=== PATIENT | female | born 1995 | race Caucasian/White ===

== ENCOUNTER 2018-05-31 15:11 | Outpatient (REF) | payer MEDICAID, SELFPAY ==
--- NOTE | 2018-05-31 11:40 | PAPFT_PTH ---
PATIENT: Varsha Espino LOC: [facility] U#:[id number] AGE/SX: 22/F ROOM: RE05/31/[address]: Mariposa Carroll NP : 1995 BED: DIS: 05/31/2018 SPEC #: [id number] RECD: 05/31/18 17:46 STATUS: ALF HERRERA #: [id number] LEONARD: 05/31/18 11:[address]: Mariposa Carroll NP DEPT: [facility] Cytology RECD BY: Ariella Lara ENTERED: 05/31/18 17:46 SP TYPE: PAPFT OTHR DR: Nina Moran Tissues: 1 - CX/ENDOCX FOR PAP SMEARS Procedures: PAP THIN PREP/UVM Screening Comments: [id number] (CHLAMYDIA/GC)
[2018-06-01 14:04] LABS: Chlamydia Result Negative; GC Result Negative; Specimen Description SEE COMMENTS
== END 2018-05-31 15:31 ==
LOC: LBN 15:11
PROVIDERS: PCP Nurse Practitioner Family; Visit Provider Nurse Practitioner Women's Health
DX: Z12.4 Encounter for screening for malignant neoplasm of cervix (principal); Z11.3 Encounter for screening for infections with a predominantly sexual mode of transmission
CPT/HCPCS: 87491; 87591; 88142

== ENCOUNTER 2020-01-16 14:47 | Outpatient (REF) | payer SELFPAY ==
[2020-01-17 15:14] LABS: Chlamydia Result Positive (Negative); GC Result Negative (Negative)
== END 2020-01-16 15:07 ==
LOC: LBN 14:47
PROVIDERS: PCP Nurse Practitioner Family; Visit Provider Nurse Practitioner Family
DX: Z11.3 Encounter for screening for infections with a predominantly sexual mode of transmission (principal)
CPT/HCPCS: 87491; 87591

== ENCOUNTER 2020-05-04 03:08 | Outpatient (CLI) | payer MEDICAID, SELFPAY ==
[2020-05-04 15:15] LABS: Abs Immature Grans 0.02 10^3/uL (0.0-0.06); Absolute Basophil Count 0.04 10^3/uL (0.0-0.2); Absolute Eosinophil Count 0.03 10^3/uL (0.0-0.7); Absolute Lymphocyte Count 1.36 10^3/uL (1.2-3.4); Absolute Monocyte Count 0.55 10^3/uL (0.1-0.8); Absolute Neutrophil Count 6.32 10^3/uL (1.2-6.7); Basophils % 0.5; Eosinophils % 0.4; HCT 39.6 % (36.0-46.0); HGB 13.6 g/dL (11.2-15.7); Immature Grans % 0.2; Lymphocytes % 16.3; MCH 31.9 pg (27.0-33.0); MCHC 34.3 % (32.0-36.0); MCV 92.7 fL (80-95); MPV 9.5 fL (8.0-11.0); Monocytes % 6.6; Nucleated RBC 0 %; Platelet Count 281 10^3/uL (130-400); RBC 4.27 10^6/uL (3.93-5.22); RDW 12.4 % (11.7-14.6); RDW-SD 42.5 fL; WBC 8.32 10^3/uL (4.4-10.8)
[2020-05-04 15:54] LABS: Glucose,1 Hr (Glucola) 124 mg/dL (80-140)
[2020-05-04 17:01] LABS: *AMPHETAMINES SCREEN URINE Negative (Negative); *BARBITURATES SCREEN URINE Negative (Negative); *BENZODIAZEPINES SCREEN URINE Negative (Negative); Cannabinoids THC Negative (Negative); Cocaine Screen,Urine Negative (Negative); METHADONE URINE SCREEN Negative (Negative); OPIATES URINE SCREEN Negative (Negative)
[2020-05-04 17:10] LABS: TSH (W/Ref FT4) 1.19 uIU/mL (0.36-3.74)
[2020-05-04 17:22] LABS: Tricyclic Antidepressants Negative (Negative)
[2020-05-05 10:11] LABS: Hepatitis C Ab w Rflx HCV PCR Negative (Negative)
[2020-05-05 10:23] LABS: Varicella IgG Antibody Negative (See Note)
[2020-05-05 10:26] LABS: Rubella IgG Ab (UVM) Positive (See Note)
[2020-05-05 11:40] LABS: Hepatitis B Surface Ag Negative (Negative)
[2020-05-05 12:25] LABS: HIV-1/2 Ag & Ab Screen Negative (Negative)
[2020-05-05 15:52] LABS: Syphilis Total Ab w/Reflex Nonreactive (Nonreactive)
[2020-05-06 14:45] LABS: Chlamydia Result Negative (Negative); GC Result Negative (Negative)
[2020-05-08 17:12] LABS: Buprenorphine Negative; Norbuprenorphine Negative
== END 2020-05-04 03:28 ==
PROVIDERS: PCP Nurse Practitioner Family; Visit Provider Advanced Practice Midwife
DX: Z34.91 Encounter for supervision of normal pregnancy, unspecified, first trimester (principal); Z11.3 Encounter for screening for infections with a predominantly sexual mode of transmission; Z11.4 Encounter for screening for human immunodeficiency virus [HIV]; Z11.59 Encounter for screening for other viral diseases; Z01.84 Encounter for antibody response examination
CPT/HCPCS: 36415; 80307; 82950; 86787; 86803; 86850; 86900; 86901; 87340; 87389; 87491; 87591; 84443; 85025; 86762; 86780; 87086

== ENCOUNTER 2020-06-04 02:49 | Outpatient (CLI) | payer MEDICAID, SELFPAY ==
[2020-06-04 09:33] LABS: Kit/Specimen SENT
[2020-06-15 02:52] LABS: Result Summary NEGATIVE; Specimen WB Whole Blood
== END 2020-06-04 02:50 | disposition home or self-care (01) ==
LOC: LBO 02:49
PROVIDERS: Advanced Practice Midwife; PCP Nurse Practitioner Family; Visit Provider Advanced Practice Midwife
DX: Z34.91 Encounter for supervision of normal pregnancy, unspecified, first trimester (principal); Z36.89 Encounter for other specified antenatal screening
CPT/HCPCS: 36415; 81220

== ENCOUNTER 2020-06-29 01:08 | Outpatient (CLI) | payer MEDICAID, SELFPAY ==
--- NOTE | 2020-06-29 07:45 | DI.US_ITS ---
EXAM: US OB 2-3 TRIMESTER CLINICAL HISTORY: 18 wk anatomy survey,Z34.90. TECHNIQUE: Transabdominal obstetrical ultrasound was performed. COMPARISON: US US OB 1ST TRIMESTER from 04/22/2020 FINDINGS: There is a single viable intrauterine gestation with cardiac activity identified-145 bpm. Amniotic fluid: There is a normal amount of amniotic fluid. Placental location: The placenta is anterior-left, grade 1,with no evidence of placenta previa. ANATOMY: A 3 vessel umbilical cord is seen. A four-chamber cardiac view was obtained. Right and left ventricular outflow tracts were imaged. There are no obvious abnormalities of the spinal column evident. There is no obvious abnormal ity of the anterior abdominal wall. stomach and urinary bladder are identified and there is no evidence of hydronephrosis. No abnormalities of the upper lip region are identified. No evidence of choroid plexus cysts i n the brain. Dating parameters place this at approximately 18 weeks and 6 days gestational age. BPD measures 19 weeks HC measures 18 weeks and 6 days AC measures 18 weeks and 5 days FL measures 18 weeks and 5 days Estimated weight is 256 gm-0 pounds 9 ounces Fetus is at the 82nd percentile on the Hadlock scale. IMPRESSION:: Single viable intrauterine gestation which is approximately 18 weeks and 6 days gestati onal age, implying an STEPHANIE of November 24, 2020. There are no obvious anomalies evident on today's study. The placenta is anterior-left with no evidence of placenta previa. There is a normal amount of amniotic fluid. DATA REPOSITORY:
== END 2020-06-29 01:28 ==
PROVIDERS: PCP Nurse Practitioner Family; Visit Provider Advanced Practice Midwife
DX: Z34.92 Encounter for supervision of normal pregnancy, unspecified, second trimester (principal)
CPT/HCPCS: 76805

== ENCOUNTER 2020-06-29 03:10 | Outpatient (CLI) | payer MEDICAID, SELFPAY ==
[2020-07-01 11:52] LABS: Calculated age at EDD 27 years; Cigarette smoking status non-Smoker; GA used in risk estimate Dates estimate; IVF Pregnancy No; Initial or repeat testing Initial testing; Insulin dependent diabetes No; Maternal Weight 225 lbs; Number of Fetuses 1; Physician Phone Number 802-748-7300; Prev Pregnancy w/NTD No; RECOMMENDED FOLLOW UP None.; Results Summary Normal risk
== END 2020-06-29 03:11 | disposition home or self-care (01) ==
LOC: LBO 03:10
PROVIDERS: Advanced Practice Midwife; PCP Nurse Practitioner Family; Visit Provider Advanced Practice Midwife
DX: Z34.92 Encounter for supervision of normal pregnancy, unspecified, second trimester (principal); Z3A.18 18 weeks gestation of pregnancy; Z36.89 Encounter for other specified antenatal screening
CPT/HCPCS: 36415; 76805; 82105

== ENCOUNTER 2020-09-07 02:14 | Outpatient (CLI) | payer MEDICAID, SELFPAY ==
[2020-09-07 09:58] LABS: HCT 35.9 % (36.0-46.0); MCH 32.2 pg (27.0-33.0); MCHC 33.4 % (32.0-36.0); MCV 96.2 fL (80-95); MPV 9.9 fL (8.0-11.0); Platelet Count 256 10^3/uL (130-400); RBC 3.73 10^6/uL (3.93-5.22); RDW 12.5 % (11.7-14.6); RDW-SD 44.1 fL; WBC 6.69 10^3/uL (4.4-10.8)
[2020-09-07 10:20] LABS: Glucose,1 Hr (Glucola) 109 mg/dL (80-140)
== END 2020-09-07 02:15 | disposition home or self-care (01) ==
LOC: LBO 02:14
PROVIDERS: PCP Nurse Practitioner Family; Visit Provider Advanced Practice Midwife
DX: Z34.93 Encounter for supervision of normal pregnancy, unspecified, third trimester (principal); Z3A.28 28 weeks gestation of pregnancy
CPT/HCPCS: 36415; 82950; 85027

== ENCOUNTER 2020-11-03 15:58 | Outpatient (REF) | payer MEDICAID, SELFPAY ==
[2020-11-03 14:00] LABS: *AMPHETAMINES SCREEN URINE Negative (Negative); *BARBITURATES SCREEN URINE Negative (Negative); *BENZODIAZEPINES SCREEN URINE Negative (Negative); Cannabinoids THC Negative (Negative); Cocaine Screen,Urine Negative (Negative); METHADONE URINE SCREEN Negative (Negative); OPIATES URINE SCREEN Negative (Negative)
[2020-11-03 14:03] LABS: Tricyclic Antidepressants Negative (Negative)
[2020-11-07 08:21] LABS: Buprenorphine Negative ng/mL (Cutoff: 5.0); Norbuprenorphine Negative ng/mL (Cutoff: 2.5)
== END 2020-11-03 15:59 | disposition home or self-care (01) ==
LOC: LBN 15:58
PROVIDERS: PCP Nurse Practitioner Family; Visit Provider Advanced Practice Midwife
DX: Z34.93 Encounter for supervision of normal pregnancy, unspecified, third trimester (principal); Z36.85 Encounter for antenatal screening for Streptococcus B; Z3A.36 36 weeks gestation of pregnancy
CPT/HCPCS: 80307; 87081

== ENCOUNTER 2020-11-23 10:51 | Inpatient (IN) | payer MEDICAID, SELFPAY ==
[2020-11-23] VITALS (25 sets, daily range): BP systolic 132–191; BP diastolic 78–124; PULSE 75–94; RESP 18; TEMP 36.6–37
--- NOTE | 2020-11-23 11:57 | HPE_ITS ---
Date of service: 11/23/20 Time of Service: 11:57 Assessment and Plan Assessment and plan (1) 39 weeks gestation of : Status: Acute (2) PROM (premature rupture of membranes): Status: Acute Assessment and plan: A: 24 yo G1 @ 39+1 wks SROM 0300, confirmed by SSE, +ferns GBS+, low risk for PPH and SD low dose ASA for risk of Pre-E Varicella Non-Immune (plan vaccination) Latent phase labor P: Admit to BC, CBC, T&S, COVID swab Begin GBS prophylaxis with PCN Await labor onset, plan pitocin induction if needed Pt verbalizes understanding and agreement with plan of care Qualifiers: PROM gestational age: full term PROM onset of labor timing: unspecified duration between rupture of membranes and onset of labor Qualified Code(s): O42.92 - Full-term premature rupture of membranes, unspecified as to length of time between rupture and onset of labor OB-HPI Labor/Delivery History of Present Illness Reason for Visit: R/O SROM @ 0300 Chief Complaint: Suspected Rupture of Membranes , Associated Signs and Symptoms of Suspected ROM: gush of clear fluid x2 at 0300. STEPHANIE Calculator Estimated Delivery Date Method Current WG Current Estimate 11/29/20 LMP (Certain) 39w 1d History of Present Expected Delivery Route/Plan - CNM FOB/boyfriend - Nitish Forte (first child) - They are not together and he will not be at the . GBS positive Varicella Non-Immune, will accept vaccine BB yes to circ- Calvin [place] wishes - hopes to avoid pain medications/epidural if possible. Pt's mother Katie will be support, is vaccinated. Specific Issues/Plan 1. First trimester bleeding 8 week US shows small subchorionic hemorrhage - precautions reviewed. 2. At initial OB, pre- BMI 32, early gkx=817, Glucose at 28 weeks- 109. 3. Varicella Non-Immune, discussed precautions/vaccine @ 14 wks 4. Desires Sevier, CF and AFP single marker testing 4a. Sevier low prob x3 male, CF neg, Single marker AFP 06/29= nml risk for NTD 5. CT+ in January, treated, KELLE negative at 10 wks EGA 6. Low dose ASA 81 mg for nulliparity and BMI of 33 7. Meet with LC after 36 wks but prior to delivery to discuss ____ 8. First covid vaccine done, appt for 2nd on August 31- received 2nd injection. Assessment: History Reviewed & Current Review of Systems All systems reviewed & are unremarkable except as noted in HPI and below Constitutional Constitutional: Reports as per HPI Cardiovascular Cardiovascular: Reports system reviewed and no additional complaints, except as documented Respiratory Respiratory: Reports system reviewed and no additional complaints, except as documented Gastrointestinal Gastrointestinal: Reports system reviewed and no additional complaints, except as documented Genitourinary Genitourinary: Reports system reviewed and no additional complaints, except as documented Musculoskeletal Musculoskeletal: Reports system reviewed and no additional complaints, except as documented Integumentary/Breasts Skin/Breast: Reports system reviewed and no additional complaints, except as documented Neurologic Neurologic: Reports system reviewed and no additional complaints, except as documented Psychiatric Psychiatric: Reports system reviewed and no additional complaints, except as documented [facility] Medical History (Updated 11/23/20 @ 12:04 by Summer Ramires) Chlamydia infection Threatened Surgical History S/P LASIK surgery of both eyes [place] teeth extracted Family History (Updated 05/04/20 @ 13:47 by Daina Vaughn RN) Mother Hypertension Social History Smoking/Tobacco Use Status: Never Smoking risk assessment performed?: Yes Alcohol Intake: current Alcohol Intake frequency: a few times a month Drug use: Never Substance use type: does not use current occupation: insurance company What type of physical activity do you participate in: regular exercise Do you feel safe in your relationship?: No Female Reproductive History Menstrual control method: pills History History 1 Para 0 Hx # Term Pregnancies 0 Multiple births 0 Hx # Pregnancies 0 Ectopic pregnancies 0 AB induced 0 Hx Number of Living Children 0 AB spontaneous 0 Meds Allergies and Home Medications Allergies Allergy/AdvReac Type Severity Reaction Status Date / Time nickel Allergy Skin Rash Verified 11/17/20 15:42 Home Medications Medication Instructions Recorded Confirmed Type Lactobac 51-Bifidobac 1 cap PO DAILY #1 cap 05/31/18 11/17/20 Rx 3-L.lactis-S.thermophilus 4 billion cell capsule prenat.vits,lisa,leq-orus-sdwra 1 tab PO DAILY 04/01/20 11/17/20 History aspirin 81 mg tablet,delayed 81 mg PO DAILY #90 tab 06/01/20 11/17/20 Rx release Exam Physical Exam Vital signs: Pulse BP 85 154/94 H 11/23/20 11:31 11/23/20 11:31 Vital Signs Reviewed: Yes Constitutional Constitutional: no acute distress Detailed Labor and Delivery Exam Dilation: 1 Effacement (%): 70 station: -4 Cervix position: posterior Consistency: medium LOPEZ Score(Cervical Ripeness Score): 4 Amniotic Membrane Status: Ruptured Rupture Method: Spontaneous Amniotic Fluid: Clear Pooling: Positive Nitrazine: Equivocal Ferning: Present Monitor Mode: External Contraction Frequency(min): irregular, q 7-10 Contraction Duration(sec): 60 Contraction Intensity: Mild Fetus A Heart Rate Baseline: 135 Monitor Accelerations: 15 X 15 Monitor Decelerations: None Variability: Moderate (6-25 BPM) Presentation: Cephalic Categories: Category I Est. Weight: 6 lb 9.822 oz Est. Weight: 3000 gms Date of Membrane Rupture: 11/23/20 Time of Membrane Rupture: 03:00 HEENT Exam HEENT Exam: Normal Neck Exam Neck Exam: Normal Chest/Brest/Axilla Exam Chest Exam: Normal Breast Exam Breast Exam: Not Done Respiratory Exam Respiratory Exam: Normal Cardiovascular Exam Cardiovascular Exam: Normal Abdominal Exam Abdominal Exam: Normal (Gravid, soft, nontender) Rectal Exam Rectal Exam: Not Done Exam Exam: Normal Extremities Exam Extremities Exam: Normal Back/Spine/Pelvis Exam Back Exam: Normal Pelvis Adequate: Yes Skin Exam Skin Exam: Normal Neurological Exam Neurological Exam: Normal Psychiatric Exam Psychiatric Exam: Normal Results Results Group Beta Strep: Positive Blood Type: A+ Rubella Status: Immune Varicella Immunity: Nonimmune Risk Assessment Risk for Shoulder Dystocia Historical/Initial OB: POSITIVE FOR: Pre- BMI>30; NEGATIVE FOR: Pelvic Abnormality, Previous Shoulder Dystocia or Previous Macrosomia 40 Weeks: NEGATIVE FOR: EFW> 4500 gms, Maternal Weight Gain >40lb or Post Dates Increased Risk?: No Counselin05/04/20 reviewed appropriate wt gain. al Delivery Plan @ 36wks: spont labor, Risk for Pre-Eclampsia Daily Dose ASA Indicated: Yes Date Initiated/Initials: 05/04/20 , accepts l/d asa starting at 12 weeks. al Yes, if one or more: NEGATIVE FOR: Hx Pre-E/Gest HTN, Chronic HTN, Multiple Gestation, Pre-gestational DM, Renal Disease, Systemic Lupus or APA Syndrome Yes, if 2 or more: POSITIVE FOR: Nulliparity and BMI>30; NEGATIVE FOR: Age>= 35 yrs, >10yr btwn pregnancies, ethinicty, Mother/Sister w/ Pre-E or Previous IUGR Risk for Post- Hemorrhage Initial: NEGATIVE FOR: Multiple Gestation, Previous PPH, Known Clotting Deficiency, Grand Multiparity or Anticoagulation At Risk?: No Risks Reviewed Risks Reviewed Upon Admission: Yes
[2020-11-23 12:34] LABS: HCT 33.6 % (36.0-46.0); MCH 30.4 pg (27.0-33.0); MCHC 32.7 % (32.0-36.0); MCV 92.8 fL (80-95); Platelet Count 265 10^3/uL (130-400); RBC 3.62 10^6/uL (3.93-5.22); RDW 13.6 % (11.7-14.6); RDW-SD 45.3 fL; WBC 10.24 10^3/uL (4.4-10.8)
[2020-11-23] MEDS: Penicillin G POT. 5,000,000 UNITS in Normal Saline 100 ML 200 UNITS IVPB (13:00)
[2020-11-23] MEDS: Normal Saline 500 ML 30 ML IV (13:23)
--- NOTE | 2020-11-23 14:02 | W.OBNST ---
Date of service: 11/23/20 Time of Service: 14:02 NST Evaluation Reason for NST Reasons for Nonstress Test: OTHER, SEE COMMENT Reason for NST Other: SROM Gestational Age Gestational Age in Weeks and Days: 39 Weeks and 1Days Test and Monitor Explained Test/Monitor Explained: Test Explained, Monitor Explained and Patient Verbalized Understanding Vital Signs Blood Pressure: 132/86 Pulse: 84 Temperature: 98.6 F Urine Results Urine Protein: Negative Urine Ketones: Negative Urine Glucose: Negative Urine Blood: Positive NST Information Time on Monitor: 11:00 Date off Monitor: 11/23/20 Time off Monitor: 11:30 NST Interventions: None Contraction Frequency: occasional NST Evaluation Patient States Movement: Present FHR Baseline: 135 Variability: Moderate 6-25 bpm Accelerations: 15x15 Decelerations: None NST Results: Reactive Note NST Note Note: r/o SROM: SROM confirmed, pt admitted to for labor and delivery, likely need for induction of labor NST Reviewed and Verified by: Summer Ramires
[2020-11-23 14:16] LABS: Source Nasal/Nares
[2020-11-23 15:09] LABS: COVID-19 PCR Negative (Negative)
[2020-11-23] MEDS: Penicillin G POT. 3,000,000 UNITS in Normal Saline 50 ML 100 UNITS IVPB ×2 (16:21→20:12)
[2020-11-23] MEDS: miSOPROStol 25 MCG TAB 50 MCG PO (16:36)
--- NOTE | 2020-11-23 16:55 | W.PM.OBNL1 ---
Date of service: 11/23/20 Time of Service: 16:55 Informed Consent Informed Consent: Induction of Labor (via cervical ripening) and Risk,Benefits,Alternatives Discussed Contractions Monitor Mode: External Contraction Frequency(min): irregular Intensity: Mild Fetus A Monitor: External (US) Heart Rate Baseline: 145 Presentation: Cephalic Variability: Moderate (6-25 BPM) Categories: Category I Accelerations: 15 X 15 Decelerations: None Amniotic Membrane Status: Ruptured Assessment and Plan Assessment and plan (1) PROM (premature rupture of membranes): Status: Acute Assessment and plan: A: Primipara, PROM x 13 hrs Boyer score = 4 on admission GBS+, prophylaxis dose complete x1 P: Will begin cervical ripening with misoprostel protocol (oral) Reviewed plan of care with Dr. Land Pt verbalizes understanding and agreement with plan of care Qualifiers: PROM onset of labor timing: unspecified duration between rupture of membranes and onset of labor PROM gestational age: full term Qualified Code(s): O42.92 - Full-term premature rupture of membranes, unspecified as to length of time between rupture and onset of labor Objective Abnormal lab results 11/23/20 Range/Units 12:15 RBC 3.62 L (3.93-5.22) 10^6/uL Hgb 11.0 L (11.2-15.7) g/dL Hct 33.6 L (36.0-46.0) % Temp Pulse BP 98.4 F 75 139/85 11/23/20 16:00 11/23/20 16:38 11/23/20 16:38 Laboratory Results WBC 10.24 10^3/uL (4.4-10.8) 11/23/20 12:15 RBC 3.62 10^6/uL (3.93-5.22) L 11/23/20 12:15 Hgb 11.0 g/dL (11.2-15.7) L 11/23/20 12:15 Hct 33.6 % (36.0-46.0) L 11/23/20 12:15 MCV 92.8 fL (80-95) 11/23/20 12:15 MCH 30.4 pg (27.0-33.0) 11/23/20 12:15 MCHC 32.7 % (32.0-36.0) 11/23/20 12:15 RDW 13.6 % (11.7-14.6) 11/23/20 12:15 Plt Count 265 10^3/uL (130-400) 11/23/20 12:15 MPV 10.0 fL (8.0-11.0) 11/23/20 12:15 COVID-19 Source Nasal/Nares 11/23/20 13:50 SARS-CoV-2 (PCR) Negative (Negative) 11/23/20 13:50 Patient ABO/Rh A Positive 11/23/20 12:15 Antibody Screen NEGATIVE 11/23/20 12:15 Subjective Interval history since last seen: Pt notes she has more contractions when up walking, no bleeding, no nausea.
--- NOTE | 2020-11-23 20:48 | W.PM.OBNL1 ---
Date of service: 11/23/20 Time of Service: 20:48 Pelvic Exam Dilation: 4.5 Effacement (%): 100 station: -1 Cervix Position: anterior Consistency: soft Vaginal Exam Presentation: Vertex Contractions Monitor Mode: External Contraction Frequency(min): q3-4 Contraction Duration(sec): 60-80 Intensity: Moderate Fetus A Monitor: External (US) Heart Rate Baseline: 140 Variability: Moderate (6-25 BPM) Categories: Category I Accelerations: 15 X 15 Amniotic Membrane Status: Ruptured Assessment and Plan Assessment and plan (1) PROM (premature rupture of membranes): Status: Acute Assessment and plan: A: Active labor after 1 dose of misoprostel Primip IOL for PROM at term GBS+, adequate prophylaxis Borderline BP now elevated though possible pain response, without severe features Pt intends unmedicated Category 1 tracing overall, an isolated variable decel noted x1 without recurrence P: Expectant management at this time Anticipate Monitor BP, consider pre-e labs Qualifiers: PROM onset of labor timing: unspecified duration between rupture of membranes and onset of labor PROM gestational age: full term Qualified Code(s): O42.92 - Full-term premature rupture of membranes, unspecified as to length of time between rupture and onset of labor Objective Vital Signs Reviewed: Yes Objective Narrative Objective Narrative: Pt has been ambulating accompanied by her mother since coming off EFM Tolerating po intake well Contractions intensified about 30 minutes ago Pt breathing through them, declines pain medication SVE 4-5/100% vtx -1 BP on admission 130's over 80's, recently systolic has increased to 140-150 Subjective Interval history since last seen: Contractions became stronger about 25 minutes ago. Results Hemoglobin/Hematocrit: Hgb 11.0 g/dL (11.2-15.7) L 11/23/20 12:15 Hct 33.6 % (36.0-46.0) L 11/23/20 12:15
[2020-11-23] MEDS: Oxytocin/Normal Saline 30 UNIT/500 ML BAG 95 UNITS IV (21:55)
[2020-11-23] MEDS: Lidocaine 1% Pres-Free 5 ML VIAL (22:15)
[2020-11-23 23:14] LABS: ALT 18 U/L (14-59); AST 16 U/L (15-37); Albumin 2.7 g/dL (3.4-5.0); Alkaline Phosphatase 109 U/L (46-116); Anion Gap 10.2 mmol/L (3-11); BUN 10 mg/dL (7-18); Bilirubin, Total 0.2 mg/dL (0.2-1.0); CO2 22.8 mmol/L (21.0-32.0); CREATININE 0.8 mg/dL (0.55-1.02); Calcium 9.1 mg/dL (8.5-10.1); Chloride 102 mmol/L (98-107); Glucose 128 mg/dL (74-106); Potassium 3.9 mmol/L (3.5-5.1); Sodium 135 mmol/L (136-145); Total Protein 7.1 g/dL (6.4-8.2); Uric Acid 4.4 mg/dL (2.6-6.0)
--- NOTE | 2020-11-23 23:40 | W.OBDELIVERY ---
Date of service: 11/23/20 Time of Service: 23:01 OB Labor/ Delivery Information Providers Nurse Aeronautical Engineering Technologist: Summer Ramires Nurse: Amber Bradford Nurse: Soniya Terrell Labor/Delivery Information Group Beta Strep: Positive Rubella Status: Immune Blood Type: A+ Varicella Immunity: Nonimmune Shoulder Dystocia: No Stages of Labor ROM Baby A: 11/23/20 ROM Baby A: 03:00 Delivery Date-Baby A: 11/23/20 Infant Delivery Time-Baby A: 21:53 Placenta Delivery Date-Baby A: 11/23/20 Placenta Delivery Time-Baby A: 20:00 Labor-Stage 3 Duration: -113 minutes Placenta Status: Delivered Baby A Infant Gender: Male Gestational Status: Term (39-41.6 wks) Gestational Age in Weeks/Days: 39 Weeks and 1 Days Interventions Repair of Laceration (Bilateral labial. No perineal laceration) Laceration Extension: N/A . Sponge Count Correct: Yes , Sharp Count Correct: Yes . Laceration Repair Note: I was called in to assist Summer Ramires CNM who had another laboring patient about to delivery. On inspection there were deep bilateral labial lacerations that were infiltrated with a total of 7cc of Lidocaine without Epinephrine and closed with subcuticular closure using 2-0 Vicryl. On inspection of the vaginal darby: No sulcus tears, perineum intact. At the completion of the procedure the repair sites were hemostatic. Pt tolerated the procedure well. EBL from bilateral labial lacerations 50cc. Naomi Land MD
[2020-11-24] VITALS (8 sets, daily range): BP systolic 117–165; BP diastolic 73–99; PULSE 71–91; RESP 16–18; TEMP 36.4–36.8; O2SAT 97
--- NOTE | 2020-11-24 00:38 | W.OBDELIVERY ---
Date of service: 11/23/20 Time of Service: 23:30 OB Labor/ Delivery Information Baby A Delivery Delivery Method: Spontaneaous Presentation: Cephalic Cephalic Position: Vertex Vertex Position: Right Occipital Anterior Breech Position: N/A Cord Description-Baby A: 3 Vessels and Nuchal Cord (reduced overhead x1) Amniotic Fluid: Clear Estimated Blood Loss: 450 Delivery Outcome: Liveborn Transferred: Remains with Mother Note: Pt progressed rapidly to full dilation with spontaneous urges to push, 2nd stage huddle completed, over intact perineum of a vigorous male , snug nuchal cord x1 reduced over head, bulb suction on field then handed to mother's arms for drying and stimulation. Pitocin IVF bolus begun and additional pitocin 10 units given as delivery was precipitous and subsequent rapid vaginal bleeding was noted. Cord ceased pulsating, clamped and cut by pt's mother, baby to warmer for pulse ox measurement which was 97%, back to mother's arms. Cord blood collected. Lee placenta intact with 3 VC, misoprostel 600 mg PO given for moderate lochia, one handful of clots manually evacuated from os. Initial inspection revealed left labial/periclitoral laceration which was repaired with 3.0 Vicryl. Several minutes after delivery, RN called CNM to room for increased bleeding. Fundus was firm and no clots found in vaginal vault, straight cath done for 50 ml yellow urine, bilateral labial lacerations noted to be bleeding at a slow though steady rate. Dr. Shine requested to come for repair as CNM was called to another delivery, see MD note. Strong family bonding observed, apgars 7/9, weight 2995 gms Significantly elevated BP readings during labor and immediately noted, pre-e labs drawn after delivery and results = WNL though urine prot/creat ratio from straight cath specimen was 0.32. Pt denies PIERRE, scotomata or RUQ pain. BP readings are normotensive by 4 hours . Providers Nurse Automation Machine Operator: Summer Ramires Nurse: Amber Bradford Nurse: Soniya Terrell Labor/Delivery Information Reason Steroids Not Administered: N/A Group Beta Strep: Positive Antibiotics Administered: Yes Number of Doses of Antibiotics: 3 Rubella Status: Immune Blood Type: A+ Varicella Immunity: Nonimmune Maternal Complications: None Shoulder Dystocia: No Stages of Labor Onset of Labor Date: 11/23/20 Onset of Labor Time: 20:00 Complete Dilatation Date: 11/23/20 Complete Dilatation Time: 21:30 Labor - Stage 1 Duration: 0 minutes ROM Baby A: 11/23/20 ROM Baby A: 03:00 Delivery Date-Baby A: 11/23/20 Delivery Time-Baby A: 21:53 Labor Stage 2 Duration: 23 minutes Placenta Delivery Date-Baby A: 11/23/20 Placenta Delivery Time-Baby A: 20:00 Labor-Stage 3 Duration: -113 minutes Total Length of Labor-Baby A: 1 hours and 53 minutes Placenta Status: Delivered Baby A Gender: Male Gestational Status: Term (39-41.6 wks) Gestational Age in Weeks/Days: 39 Weeks and 1 Days weight: 6 lb 9.646 oz Weight Comment: 2995 gms Score-1 Minute Interval(Baby A) Heart Rate-1 minute: 100 BPM or Greater Respiratory Effort- 1 minute: Slow Respiration/Weak Cry Muscle Tone-1 minute: Active Movement Reflex Response-1 minute: Prompt Response Color-1 minute: Pallor or Cyanosis Score-5 Minute Interval(Baby A) Heart Rate- 5 minute: 100 BPM or Greater Respiratory Effort-5 minute: Slow Respiration/Weak Cry Muscle Tone-5 minute: Active Movement Reflex Response-5 minute: Prompt Response Color-5 minute: [place]/No Cyanosis Interventions Repair of Laceration Type: Other (labial) , Sponge Count Correct: Yes , Laceration Repair Note: deep bilateral labial lacerations repaired under local anesthesia by Dr. Land, see note
[2020-11-24 01:18] LABS: PROTEIN 47.5 mg/dL
[2020-11-24 01:23] LABS: COMMENT (LAB VIEW ONLY) 145.31 mg/dL; Prot/Crea Ur Ratio 0.32
[2020-11-24 07:47] LABS: HCT 28.6 % (36.0-46.0); HGB 9.4 g/dL (11.2-15.7); MCH 30.2 pg (27.0-33.0); MCHC 32.9 % (32.0-36.0); MPV 10.3 fL (8.0-11.0); Platelet Count 248 10^3/uL (130-400); RBC 3.11 10^6/uL (3.93-5.22); RDW 13.8 % (11.7-14.6); RDW-SD 45.4 fL; WBC 14.81 10^3/uL (4.4-10.8)
[2020-11-24] MEDS: Ibuprofen 600 MG TAB PO (09:23)
[2020-11-24] MEDS: Acetaminophen 325 MG TAB 650 MG PO (09:23)
--- NOTE | 2020-11-24 14:38 | W.PM.OBPNV1 ---
Date of service: 11/24/20 Time of Service: 14:38 Assessment and Plan Assessment and plan (1) Term delivered: Status: Acute Assessment and plan: A: PPD#1, nml recovery off to a good start Pt reports strong family support Normotensive since 4 hrs anemia, asymptomatic P: Plans IUD insertion at 6 wks Expect discharge tomorrow F/up at 2 & 6 wks Continue current support and care Varicella vaccine prior to discharge Subjective Subjective Patient comments: No complaints, Pain well controlled, Tolerating diet and Flatus present baby status: Doing well, Nursing well, Rooming in and Strong Bonding Observed feeding status: Exclusively breast feeding Exam Physical Exam Vital signs: Temp Pulse Resp BP 97.9 F 71 18 126/78 11/24/20 05:00 11/24/20 05:00 11/24/20 05:00 11/24/20 05:00 Vital Signs Reviewed: Yes Constitutional Constitutional: no acute distress HEENT Exam HEENT Exam: Normal Neck Exam Neck Exam: Normal Breast Exam Bilateral: Breast Exam: Normal and Soft Nipple Exam: Normal and Uninjured Respiratory Exam Respiratory Exam: Normal Cardiovascular Exam Cardiovascular Exam: Normal Abdominal Exam Abdomen: Other (soft, nontender) Fundal Exam Fundus: Below Umbilicus and Firm Rectal Exam Rectal Exam: Normal Exam Perineum: Repair Intact Extremities Exam Extremity Exam: Normal Back/Spine/Pelvis Exam Back Exam: Normal Skin Exam Skin Exam: Normal Neurological Exam Neurological Exam: Normal Psychiatric Exam Psychiatric Exam: Normal Results Hemoglobin/Hematocrit: Hgb 9.4 g/dL (11.2-15.7) L 11/24/20 06:59 Hct 28.6 % (36.0-46.0) L 11/24/20 06:59 Abnormal Lab Findings: Abnormal Labs 11/23/20 11/23/20 11/24/20 12:15 22:35 06:59 WBC 14.81 H D RBC 3.62 L 3.11 L Hgb 11.0 L 9.4 L Hct 33.6 L 28.6 L Sodium 135 L Glucose 128 H Albumin 2.7 L
--- NOTE | 2020-11-25 08:03 | OBPPV_ITS ---
Date of service: 11/25/20 Time of Service: 08:03 Assessment and Plan Assessment and plan (1) Term delivered: Status: Acute Assessment and plan: A: PPD#2, nml recovery anemia, asymptomatic P: Desires discharge today Plans IUD insertion at 6 wks F/up at 2 & 6 wks Varicella vaccine prior to discharge, 2nd shot to be given at 6 weeks Written instructions reviewed and given to pt Pt well supported by family at home Start iron supplement after first BM Subjective Subjective Patient comments: No complaints, Pain well controlled, Tolerating diet and Flatus present baby status: Doing well, Nursing well, Rooming in and Strong Bonding Observed [place] feeding status: Exclusively breast feeding Exam Physical Exam Vital signs: Temp Pulse Resp BP Pulse Ox 98.2 F 85 16 117/73 97 11/24/20 20:00 11/24/20 20:00 11/24/20 20:00 11/24/20 20:00 11/24/20 20:00 Vital Signs Reviewed: Yes Constitutional Constitutional: no acute distress HEENT Exam HEENT Exam: Normal Neck Exam Neck Exam: Normal Breast Exam Bilateral: Breast Exam: Normal and Soft Respiratory Exam Respiratory Exam: Normal Cardiovascular Exam Cardiovascular Exam: Normal Abdominal Exam Abdomen: Other (soft, nontender) Fundal Exam Fundus: Below Umbilicus and Firm Rectal Exam Rectal Exam: Normal Exam Perineum: Repair Intact Extremities Exam Extremity Exam: Normal Back/Spine/Pelvis Exam Back Exam: Normal Skin Exam Skin Exam: Normal Neurological Exam Neurological Exam: Normal Psychiatric Exam Psychiatric Exam: Normal Results Abnormal Lab Findings:
--- NOTE | 2020-11-25 08:23 | W.PM.OBDISCH ---
Date of service: 11/25/20 Time of Service: 08:23 DS: Diagnosis Discharge Diagnosis (1) Term delivered: Status: Acute Discharge Plan Disposition Patient Disposition: HOME Condition: Good Discharge Details Reason For Visit: R/O SROM @ 0300 Admit Date/Time: 11/23/20 11:54 Admit Provider: Summer Ramires Attending Provider: Summer Ramires Primary Care Provider: Nina Moran Hospital Course Hospital Course: INudced for PROM at term, , nml course Home Meds and New Rx's Prescriptions: No Action Daily Probiotic (10 Strains) 4 billion cell capsule 1 cap PO DAILY Qty: 1 RF: 0 prenat.vits,lisa,cxg-smeq-tmuig Tablet 1 tab PO DAILY RF: 0 Discharge Instructions Additional Instructions: Please keep 2 & 6 wk appt's with the forestry patrolman, plan for Mirena IUD insertion at the 6 week appt, please be sure your 6 wk appt is for an hour. Call for any questions or concerns. Start taking an iron supplement after you first bowel movement You should be given a chickenpox vaccine before you go home from the hospital, and a 2nd injection will be given at your 6 week appt. Stand Alone Forms: BC Instructions, NB Circumcision Care Inst., NB Instructions, BC Post Vaginal Deliver Activity:: Activity as Tolerated Equipment/Supplies:: No Equipment Needed Diet:: Normal Diet Discharge Orders Discharge Orders: Discharge Order (Routine); Ordered 11/25/20 Ordered By: Summer Ramires OB:DS Summary Summary Vaginal Delivery Method: Spontaneaous Episiotomy Description: None Laceration Description: Other (labial) Laceration Extension: N/A Contraception Discussed Contraception Discussed: Yes Contraceptive Plan: IUD, Gender-Baby A: Male weight: 6 lb 9.646 oz Status at Discharge Functional status at discharge: independent ambulation Overall status at discharge: patient is progressing back to baseline Mental Status: mental status grossly normal Speech and Movement: speech and movement normal and speech clear Mood: congruent mood Affect: normal affect Exam Physical Exam Vital signs: Temp Pulse Resp BP Pulse Ox 98.2 F 85 16 117/73 97 11/24/20 20:00 11/24/20 20:00 11/24/20 20:00 11/24/20 20:00 11/24/20 20:00 Vital Signs Reviewed: Yes Constitutional Constitutional: no acute distress HEENT Exam HEENT Exam: Normal Neck Exam Neck Exam: Normal Breast Exam Bilateral: Breast Exam: Normal and Soft Nipple Exam: Normal and Uninjured Respiratory Exam Respiratory Exam: Normal Cardiovascular Exam Cardiovascular Exam: Normal Abdominal Exam Abdomen: Other (soft, nontender) Fundal Exam Fundus: Below Umbilicus and Firm Rectal Exam Rectal Exam: Not Done Exam Perineum: Repair Intact Extremities Exam Extremity Exam: Normal Back/Spine/Pelvis Exam Back Exam: Normal Skin Exam Skin Exam: Normal Neurological Exam Neurological Exam: Normal Psychiatric Exam Psychiatric Exam: Normal [facility] Medical History (Updated 11/24/20 @ 15:12 by Summer Ramires) 39 weeks gestation of Chlamydia infection GBS (group B Streptococcus carrier), +RV culture, currently PROM (premature rupture of membranes) Threatened Surgical History S/P LASIK surgery of both eyes [place] teeth extracted Family History (Updated 05/04/20 @ 13:47 by Daina Vaughn RN) Mother Hypertension Social History Smoking/Tobacco Use Status: Never Smoking risk assessment performed?: Yes Alcohol Intake: current Alcohol Intake frequency: a few times a month Drug use: Never Substance use type: does not use current occupation: insurance company What type of physical activity do you participate in: regular exercise Do you feel safe in your relationship?: No Female Reproductive History Menstrual control method: pills History History 1 Para 0 Hx # Term Pregnancies 0 Multiple births 0 Hx # Pregnancies 0 Ectopic pregnancies 0 AB induced 0 Hx Number of Living Children 0 AB spontaneous 0 DS: Data Vitals/I&O Vitals and I&O: Vital Signs Temperature 98.2 F 11/24/20 20:00 Pulse 85 11/24/20 20:00 Pulse Rhythm Regular 11/24/20 07:20 Respiratory Rate 16 11/24/20 20:00 Respiratory Depth Normal 11/24/20 07:20 Blood Pressure 117/73 11/24/20 20:00 Blood Pressure Mean 87 11/24/20 20:00 Pulse Oximetry 97 11/24/20 20:00 Intake & Output 11/24/20 11/24/20 11/25/20 11:59 23:59 11:59 Intake Total 1550 / 1550 Balance 1550 / 1550 Intake: IV 550 / 550 Oral 1000 / 1000 Other: Urine Color Yellow Yellow
[2020-11-25 09:30] VITALS: BP 129/86; PULSE 75; RESP 16; TEMP 36.5; O2SAT 99
[2020-11-25] MEDS: Varicella Virus Vaccine (Live) 0.5 ML SC (10:39)
== END 2020-11-25 11:30 | disposition home or self-care (01) | DRG 807 ==
PROVIDERS: Admitting Provider Advanced Practice Midwife; PCP Nurse Practitioner Family; Visit Provider Advanced Practice Midwife
DX: O42.02 Full-term premature rupture of membranes, onset of labor within 24 hours of rupture (principal); Z37.0 Single live birth; O70.0 First degree perineal laceration during delivery; O99.824 Streptococcus B carrier state complicating childbirth; O90.81 Anemia of the puerperium; D64.9 Anemia, unspecified; Z3A.39 39 weeks gestation of pregnancy
CPT/HCPCS: 36415; 80053; 85027; 86850; 86900; 86901; 87635; 82565; 84156; 84550; J2540; J3490

== ENCOUNTER 2023-01-24 13:09 | Outpatient (REF) | payer MEDICAID, SELFPAY ==
--- NOTE | 2023-01-24 12:15 | PAPFT_PTH ---
PATIENT: Varsha Espino LOC: [facility]#:[id number] AGE/SX: 27/F ROOM: RE01/24/[address]: Nina Moran : 1995 BED: DIS: 01/24/2023 SPEC #: [id number] RECD: 01/25/23 13:17 STATUS: ALF RETravis #: [id number] LEONARD: 01/24/23 12:[address]: Nina Moran DEPT: [facility] Cytology RECD BY: Ariella Lara Tissues: 1 - CX/ENDOCX FOR PAP SMEARS Procedures: PAP THIN PREP/UVM Screening Comments: [id number] (CHLAMYDIA/GC)
[2023-01-26 08:44] LABS: HIV-1/2 Ag & Ab Screen Negative (Negative)
[2023-01-26 11:21] LABS: Syphilis Serology (RPR) Negative (Negative)
[2023-01-26 15:17] LABS: Chlamydia Result Negative (Negative); GC Result Negative (Negative)
== END 2023-01-24 13:10 | disposition home or self-care (01) ==
LOC: NCHCN 13:09
PROVIDERS: PCP Nurse Practitioner Family; Visit Provider Nurse Practitioner Family
DX: Z01.419 Encounter for gynecological examination (general) (routine) without abnormal findings; J30.9 Allergic rhinitis, unspecified; G43.109 Migraine with aura, not intractable, without status migrainosus; E66.3 Overweight; Z11.3 Encounter for screening for infections with a predominantly sexual mode of transmission; Z00.00 Encounter for general adult medical examination without abnormal findings
CPT/HCPCS: 87389; 87491; 87591; 88142; 86592

== ENCOUNTER 2024-10-14 09:26 | Outpatient (REF) | payer MEDICAID, SELFPAY ==
[2024-10-14 15:50] LABS: Calculated LDL 104 mg/dL (<100); Cholesterol 187 mg/dL (<200); HDL Cholesterol 65 mg/dL (>or=50); Triglyceride 93 mg/dL (<150)
[2024-10-14 15:56] LABS: Hemoglobin A1C 5.3 % (<5.7)
== END 2024-10-14 09:27 | disposition home or self-care (01) ==
LOC: NCHCN 09:26
PROVIDERS: PCP Nurse Practitioner Family; Visit Provider Nurse Practitioner Family
DX: Z00.00 Encounter for general adult medical examination without abnormal findings (principal)
CPT/HCPCS: 80061; 83036